=== PATIENT | male | born 1940 | race Two or more races ===

== ENCOUNTER 2023-09-22 11:02 | Inpatient (IN) | payer MEDICARE, MEDICAID ==
[~2023-09-22] VITALS: Ht 160 cm; Wt 76.8 kg
[2023-09-22] MEDS: VANCOMYCIN HCL 1000 MG VL ONE (10:57)
[2023-09-22] MEDS: ceFAZolin 2 GM/D5W50ml 50 ML IV ONE (11:17)
[2023-09-22] MEDS: TRANEXAMIC ACID 20 ML ONE (11:18)
[2023-09-22] MEDS: BUPIVACAINE HCL 50 ML ONE (11:18)
[2023-09-22] MEDS ORDERED: MORPHINE SULF PF 5 MG/10 ML VIAL ONE (11:20)
[2023-09-22] MEDS ORDERED: KETOROLAC TROMETH 30 MG/ML 1ML VIAL ONE (11:20)
[2023-09-22] MEDS ORDERED: fentaNYL CITRATE 100 MCG/2 ML VL ONE (11:31)
[2023-09-22] MEDS ORDERED: PROPOFOL 10 MG/ML 20 ML IV ONE (11:32)
[2023-09-22] MEDS: BUPIVACAINE 0.5% P/F INJ 10 ML VIAL ONE (11:52)
[2023-09-22] MEDS ORDERED: MIDAZOLAM HCL 2MG/2ML 2ml VIAL (1mg/ml) ONE (12:03)
[2023-09-22] MEDS: ACETAMINOPHEN IV 100 ML IV ONE (12:14)
[2023-09-22] MEDS: CELECOXIB 100 MG CAP ONE (12:15)
[2023-09-22] MEDS: ACETAMINOPHEN IV 1000 MG/100ML (10MG/ML) IV ONE (12:15)
[2023-09-22] MEDS: PREGABALIN CAPSULE 75 MG CAP ONE (12:15)
[2023-09-22] MEDS: PREGABALIN CAPSULE 75 MG CAP PO ONE (12:30)
[2023-09-22] MEDS: CELECOXIB 100 MG CAP PO ONE (12:30)
[2023-09-22] MEDS ORDERED: ePHEDrine SULFATE 50 MG/ML AMP ONE (12:32)
[2023-09-22] MEDS ORDERED: NITROGLYCERIN 0.4 MG SL TAB SL PRN (13:45)
[2023-09-22] MEDS ORDERED: ONDANSETRON HCL 4 MG/2 ML VIAL IV PRN (13:45)
[2023-09-22] MEDS: LACTATED RINGER'S 1,000 ML IV SCH (13:45)
[2023-09-22] MEDS ORDERED: MORPHINE SULFATE INJ 2 MG/ml SYRG IV PRN (13:45)
[2023-09-22] MEDS: ceFAZolin 1GM/50ML 50 ML IV SCH (13:45)
[2023-09-22] MEDS ORDERED: HYDROmorphone HCL 2 MG/ML VL/or syr IV PRN (13:45)
[2023-09-22 13:52] VITALS: O2SAT 100
[2023-09-22] MEDS: SODIUM CHLOR 0.9% PF (SALINE LOCK) 10ML VIAL/SYR IV SCH (14:00)
[2023-09-22] MEDS ORDERED: SODIUM CHLORIDE LOCK 20 ML ONE (14:14)
[2023-09-22 17:50] VITALS: RESP 18
[2023-09-22 20:00] VITALS: O2SAT 98
[2023-09-22] MEDS: HYDROmorphone HCL 2 MG/ML VL/or syr IV PRN (20:12)
[2023-09-22 21:00] VITALS: BP 129/84; PULSE 67; RESP 17; O2SAT 98
[2023-09-22] MEDS: oxyCODONE ER 10 MG TAB PO SCH (22:14)
[2023-09-22] MEDS: DOCUSATE SOD 100 MG CAP PO SCH (22:14)
[2023-09-23 05:00] VITALS: BP 112/75; PULSE 89; RESP 18; TEMP 97.5; O2SAT 95
[2023-09-23 06:12] LABS: Basophils # (auto) 0 10 ^3/uL (0-0.2); Basophils % (auto) 0.4 % (0.0-2.0); Eosinophils # (auto) 0.1 10 ^3/uL (0-0.8); Eosinophils % (auto) 1.3 % (0.0-7.0); Hematocrit 40.5 % (41.0-53.0); Hemoglobin 13.4 g/dL (13.5-17.5); Lymphocytes # (auto) 0.3 10 ^3/uL (0.4-5.4); Lymphocytes % (auto) 7.5 % (10.0-50.0); Mean Corpuscular Hemoglobin 32.3 pg (28.0-32.0); Mean Corpuscular Hgb Conc. 33.1 g/dL (32.0-36.0); Mean Corpuscular Volume 97.5 fL (80.0-100.0); Monocytes # (auto) 0.3 10 ^3/uL (0-1.3); Monocytes % (auto) 8.5 % (0.0-12.0); Neutrophils # (auto) 3.4 10 ^3/uL (1.6-8.6); Neutrophils % (auto) 82.3 % (37.0-80.0); Nucleated Red Blood Cells % 0.1 %; Red Blood Cells 4.15 10^6/uL (4.5-5.90); White Blood Cell 4.1 10^3/uL (4.4-10.8)
[2023-09-23 06:31] LABS: Alanine Aminotransferase 208 U/L (7-40); Albumin 3.7 g/dL (3.2-4.8); Alkaline Phosphatase 133 U/L (46-116); Anion Gap 4 (5-15); Aspartate Aminotransferase 313 U/L (13-40); BUN/Creatinine Ratio 20.5 (10.0-20.0); Blood Urea Nitrogen 15 mg/dL (9-23); Calcium 8.9 mg/dL (8.5-10.1); Carbon Dioxide 29 mmol/L (20-30); Chloride 108 mmol/L (98-107); Glucose 145 mg/dL (74-106); Potassium 4.5 mmol/L (3.5-5.1); Sodium 141 mmol/L (136-145); Total Protein 5.4 g/dL (5.7-8.2)
[2023-09-23 08:56] VITALS: BP 115/74; PULSE 70; RESP 17; TEMP 98.3; O2SAT 93
[2023-09-23] MEDS: PANTOPRAZOLE 40 MG TAB PO SCH (11:36)
[2023-09-23] MEDS: ENOXAPARIN SOD 40 MG/0.4 ML SYRINGE SC SCH (11:36)
[2023-09-23 13:00] VITALS: BP 110/57; PULSE 81; RESP 20; TEMP 97.9; O2SAT 92
[2023-09-23 14:00] VITALS: BP 110/57; PULSE 81; RESP 20; TEMP 97.9; O2SAT 92
[2023-09-23] MEDS: KETOROLAC TROMETH 30 MG/ML 1ML VIAL IV PRN (15:40)
[2023-09-23 17:00] VITALS: BP 113/66; PULSE 81; RESP 20; TEMP 99; O2SAT 91
[2023-09-23 21:00] VITALS: BP 126/52; PULSE 102; RESP 18; TEMP 99; O2SAT 92
[2023-09-24] VITALS (8 sets, daily range): BP systolic 120–151; BP diastolic 59–84; PULSE 78–105; RESP 15–22; TEMP 36.6; O2SAT 92–99
[2023-09-24] MEDS: OXYCODONE W/ ACETAMINOPHEN 5/325MG TABLET PO PRN (00:44)
[2023-09-24 05:22] LABS: Basophils # (auto) 0 10 ^3/uL (0-0.2); Basophils % (auto) 0.5 % (0.0-2.0); Eosinophils # (auto) 0.1 10 ^3/uL (0-0.8); Eosinophils % (auto) 1.4 % (0.0-7.0); Hematocrit 38.6 % (41.0-53.0); Lymphocytes # (auto) 0.7 10 ^3/uL (0.4-5.4); Lymphocytes % (auto) 12.7 % (10.0-50.0); Mean Corpuscular Hemoglobin 32.4 pg (28.0-32.0); Mean Corpuscular Hgb Conc. 33.6 g/dL (32.0-36.0); Mean Corpuscular Volume 96.4 fL (80.0-100.0); Monocytes # (auto) 0.4 10 ^3/uL (0-1.3); Monocytes % (auto) 8.5 % (0.0-12.0); Neutrophils # (auto) 4.1 10 ^3/uL (1.6-8.6); Neutrophils % (auto) 76.9 % (37.0-80.0); Nucleated Red Blood Cells % 0.1 %; Red Cell Distribution Width 13.8 % (11.8-14.3); White Blood Cell 5.3 10^3/uL (4.4-10.8)
[2023-09-24 05:43] LABS: Alanine Aminotransferase 104 U/L (7-40); Albumin 3.5 g/dL (3.2-4.8); Alkaline Phosphatase 116 U/L (46-116); Anion Gap 3 (5-15); BUN/Creatinine Ratio 13.2 (10.0-20.0); Blood Urea Nitrogen 10 mg/dL (9-23); Calcium 8.9 mg/dL (8.7-10.4); Carbon Dioxide 27 mmol/L (20-30); Chloride 108 mmol/L (98-107); Glucose 130 mg/dL (74-106); Potassium 4.2 mmol/L (3.5-5.1); Sodium 138 mmol/L (136-145)
[2023-09-24 05:44] LABS: Aspartate Aminotransferase 85 U/L (13-40); Bilirubin, Total 0.9 mg/dL (0.2-1.0); Total Protein 5.9 g/dL (5.7-8.2)
[2023-09-24] MEDS: ERGOCALCIFEROL 50,000 UNIT(1.25MG) CAP PO SCH (13:05)
[2023-09-24] MEDS: traMADol HCL 50 MG TAB PO ONE (13:05)
[2023-09-24] MEDS: CHOLECALCIFEROL (VITD3) 1,000UNIT=25mCg TAB PO SCH (17:41)
[2023-09-25 01:00] VITALS: BP 131/85; PULSE 88; RESP 18; TEMP 97.7; O2SAT 97
[2023-09-25 05:00] VITALS: BP 139/84; PULSE 83; RESP 19; TEMP 98; O2SAT 96
[2023-09-25 07:46] LABS: Alanine Aminotransferase 194 U/L (7-40); Albumin 3.8 g/dL (3.2-4.8); Alkaline Phosphatase 202 U/L (46-116); Anion Gap 8 (5-15); Aspartate Aminotransferase 266 U/L (13-40); Bilirubin, Total 2.1 mg/dL (0.2-1.0); Blood Urea Nitrogen 8 mg/dL (9-23); Calcium 9.1 mg/dL (8.5-10.1); Carbon Dioxide 22 mmol/L (20-30); Chloride 107 mmol/L (98-107); Glucose 105 mg/dL (74-106); Potassium 3.8 mmol/L (3.5-5.1); Sodium 137 mmol/L (136-145)
[2023-09-25 08:00] VITALS: BP 125/85; PULSE 89; RESP 16; TEMP 98.3; O2SAT 93
[2023-09-25 12:00] VITALS: BP 126/82; PULSE 92; RESP 16; TEMP 98.2; O2SAT 93
[2023-09-25 13:15] LABS: Urine Bacteria NONE SEEN /hpf (None Seen); Urine WBC 1 /hpf (0 - 3)
[2023-09-25 13:19] LABS: Urine Clarity CLEAR (Clear); Urine Color Yellow (Yellow); Urine Specific Gravity 1.015 (1.001-1.035)
[2023-09-25 13:21] LABS: Urine Blood Negative /uL (Negative); Urine Protein, UAD Negative (Negative); Urine Urobilinogen Normal (Negative)
[2023-09-25] MEDS: LACTULOSE 20Gm/30ML SOLN PO ONE (15:30)
[2023-09-25 16:00] VITALS: BP 138/86; PULSE 109; RESP 16; TEMP 98.1; O2SAT 95
[2023-09-25 22:00] VITALS: BP 137/84; PULSE 97; RESP 18; TEMP 97.8; O2SAT 96
[2023-09-26 01:00] VITALS: BP 105/75; PULSE 94; RESP 18; TEMP 97.7; O2SAT 93
[2023-09-26 05:00] VITALS: BP 118/52; PULSE 98; RESP 18; TEMP 98.1; O2SAT 94
[2023-09-26 07:53] LABS: Alanine Aminotransferase 247 U/L (7-40); Alkaline Phosphatase 265 U/L (46-116); Anion Gap 6 (5-15); BUN/Creatinine Ratio 15.9 (10.0-20.0); Blood Urea Nitrogen 10 mg/dL (9-23); Calcium 9.4 mg/dL (8.7-10.4); Carbon Dioxide 25 mmol/L (20-30); Chloride 105 mmol/L (98-107); Glucose 104 mg/dL (74-106); Potassium 3.5 mmol/L (3.5-5.1); Sodium 136 mmol/L (136-145)
[2023-09-26 07:54] LABS: Albumin 3.8 g/dL (3.2-4.8); Aspartate Aminotransferase 314 U/L (13-40); Bilirubin, Total 2.8 mg/dL (0.2-1.0); Total Protein 6.6 g/dL (5.7-8.2)
[2023-09-26 09:30] VITALS: BP 142/75; PULSE 85; RESP 17; TEMP 98.8; O2SAT 97
[2023-09-26] MEDS ORDERED: OXYCODONE W/ ACETAMINOPHEN 5/325MG TABLET PO PRN (09:45)
[2023-09-26 11:45] LABS: Hepatitis B Surface Antigen Negative (Negative)
[2023-09-26] MEDS: Ensure HIGH Protein Chocolate 8oz Bottle PO SCH (12:00)
[2023-09-26 12:05] LABS: Hepatitis A Ab IgM Negative
[2023-09-26 12:06] LABS: Hepatitis B Core IgM Negative; Hepatitis C Antibody Negative (Negative)
[2023-09-26] MEDS: traMADol HCL 50 MG TAB PO PRN (13:01)
[2023-09-26 13:15] VITALS: BP 127/85; PULSE 91; RESP 18; TEMP 98.6; O2SAT 94
[2023-09-26 16:59] VITALS: BP 112/72; PULSE 92; RESP 17; TEMP 98.3; O2SAT 93
[2023-09-26 21:00] VITALS: BP 123/77; PULSE 89; RESP 18; TEMP 97.7; O2SAT 95
[2023-09-27] VITALS (7 sets, daily range): BP systolic 94–166; BP diastolic 60–90; PULSE 60–98; RESP 17–20; TEMP 97.6–99.7; O2SAT 93–96
[2023-09-27 05:18] LABS: Basophils # (auto) 0 10 ^3/uL (0-0.2); Basophils % (auto) 0.7 % (0.0-2.0); Eosinophils # (auto) 0.2 10 ^3/uL (0-0.8); Eosinophils % (auto) 6.2 % (0.0-7.0); Hematocrit 35.5 % (41.0-53.0); Hemoglobin 12.1 g/dL (13.5-17.5); Lymphocytes # (auto) 0.7 10 ^3/uL (0.4-5.4); Lymphocytes % (auto) 20.7 % (10.0-50.0); Mean Corpuscular Hemoglobin 32.6 pg (28.0-32.0); Mean Corpuscular Volume 95.7 fL (80.0-100.0); Monocytes # (auto) 0.4 10 ^3/uL (0-1.3); Monocytes % (auto) 11.6 % (0.0-12.0); Neutrophils # (auto) 2.1 10 ^3/uL (1.6-8.6); Neutrophils % (auto) 60.8 % (37.0-80.0); Nucleated Red Blood Cells % 0.1 %; Red Blood Cells 3.71 10^6/uL (4.5-5.90); Red Cell Distribution Width 13.8 % (11.8-14.3); White Blood Cell 3.4 10^3/uL (4.4-10.8)
[2023-09-27 05:41] LABS: Alanine Aminotransferase 208 U/L (7-40); Albumin 3.6 g/dL (3.2-4.8); Alkaline Phosphatase 260 U/L (46-116); Anion Gap 7 (5-15); Aspartate Aminotransferase 212 U/L (13-40); Bilirubin, Total 2.4 mg/dL (0.2-1.0); Blood Urea Nitrogen 12 mg/dL (9-23); Calcium 9.2 mg/dL (8.7-10.4); Carbon Dioxide 27 mmol/L (20-30); Chloride 104 mmol/L (98-107); Glucose 107 mg/dL (74-106); Potassium 3.5 mmol/L (3.5-5.1); Sodium 138 mmol/L (136-145); Total Protein 6.1 g/dL (5.7-8.2)
[2023-09-28 01:00] VITALS: BP 119/59; PULSE 102; RESP 18; TEMP 98.8; O2SAT 93
[2023-09-28 05:00] VITALS: BP 106/63; PULSE 94; RESP 18; TEMP 98.2; O2SAT 92
[2023-09-28 06:05] LABS: Alanine Aminotransferase 237 U/L (7-40); Albumin 3.6 g/dL (3.2-4.8); Alkaline Phosphatase 274 U/L (46-116); Anion Gap 4 (5-15); Aspartate Aminotransferase 251 U/L (13-40); BUN/Creatinine Ratio 20.6 (10.0-20.0); Blood Urea Nitrogen 13 mg/dL (9-23); Calcium 8.9 mg/dL (8.5-10.1); Carbon Dioxide 29 mmol/L (20-30); Chloride 104 mmol/L (98-107); Glucose 107 mg/dL (74-106); Potassium 3.6 mmol/L (3.5-5.1); Sodium 137 mmol/L (136-145)
[2023-09-28 06:06] LABS: Bilirubin, Total 3.1 mg/dL (0.2-1.0)
[2023-09-28 09:00] VITALS: BP 119/71; PULSE 101; RESP 19; TEMP 98.2; O2SAT 95
[2023-09-28 13:00] VITALS: BP 102/65; PULSE 98; RESP 18; TEMP 100.4; O2SAT 93
[2023-09-28] MEDS: URSODIOL 300 MG CAP PO ONE (15:37)
[2023-09-28 17:00] VITALS: BP 100/62; PULSE 90; RESP 19; TEMP 99.6; O2SAT 94
[2023-09-28 21:00] VITALS: BP 113/75; PULSE 89; RESP 18; TEMP 97.6; O2SAT 94
[2023-09-28] MEDS: URSODIOL 300 MG CAP PO SCH (21:09)
[2023-09-29 01:00] VITALS: BP 109/68; PULSE 92; RESP 18; TEMP 99.4; O2SAT 92
[2023-09-29 05:00] VITALS: BP 131/80; PULSE 95; RESP 18; TEMP 99; O2SAT 96
[2023-09-29 06:00] LABS: INR 1.04 (0.9-1.15); Prothrombin Time 10.9 sec (9.3-11.8)
[2023-09-29 06:02] LABS: Alanine Aminotransferase 170 U/L (7-40); Albumin 3.7 g/dL (3.2-4.8); Alkaline Phosphatase 234 U/L (46-116); Anion Gap 5 (5-15); Aspartate Aminotransferase 87 U/L (13-40); BUN/Creatinine Ratio 14.8 (10.0-20.0); Blood Urea Nitrogen 9 mg/dL (9-23); Carbon Dioxide 28 mmol/L (20-30); Chloride 104 mmol/L (98-107); Glucose 108 mg/dL (74-106); Potassium 3.5 mmol/L (3.5-5.1); Sodium 137 mmol/L (136-145)
[2023-09-29 06:03] LABS: Bilirubin, Total 1.5 mg/dL (0.2-1.0); Total Protein 6.2 g/dL (5.7-8.2)
[2023-09-29 08:00] VITALS: BP 128/80; PULSE 94; RESP 18; TEMP 98.5; O2SAT 94
[2023-09-29] MEDS ORDERED: URSO300C2 PO (11:40)
[2023-09-29] MEDS ORDERED: TRAM50TA2 PO (11:40)
[2023-09-29 12:00] VITALS: BP 108/72; PULSE 91; RESP 18; TEMP 98.1; O2SAT 93
== END 2023-09-29 17:11 | disposition home health service (06) | DRG 470 ==
LOC: SUR 11:02 → OVERFLOW 13:46 → TELE-WESTW 16:15 → WEST WING 09-24 14:24
PROVIDERS: ADMIT Orthopaedic Surgery Adult Reconstructive Orthopaedic Surgery; ATTEND Internal Medicine
PROC: 8E0YXBZ Computer Assisted Procedure of Lower Extremity (ICD-10-PCS; 2023-09-22)
PROC: 0SRC0J9 Replacement of Right Knee Joint with Synthetic Substitute, Cemented, Open Approach (ICD-10-PCS; principal; 2023-09-22 12:19)
DX: M17.11 Unilateral primary osteoarthritis, right knee (principal); E78.5 Hyperlipidemia, unspecified; M21.161 Varus deformity, not elsewhere classified, right knee; R74.01 Elevation of levels of liver transaminase levels; Z85.46 Personal history of malignant neoplasm of prostate; T50.995A Adverse effect of other drugs, medicaments and biological substances, initial encounter; Y92.89 Other specified places as the place of occurrence of the external cause; K71.10 Toxic liver disease with hepatic necrosis, without coma
CPT/HCPCS: 36415; 73562; 76705; 80053; 80074; 80329; 81001; 82306; 82728; 85025; 85610; 86850; 86900; 86901; 97110; 97116; 97163; 97530; G0378; J0131; J1885; J2250; J2405; J2704; J3490